=== PATIENT | female | born 1985 | race African-American/Black ===

== ENCOUNTER 2016-08-13 20:54 | Emergency (ER) | payer OTHER ==
[2016-08-13 21:26] VITALS: BP 105/61; PULSE 68; TEMP 98.2; BMI 30.3
--- NOTE | 2016-08-13 22:08 | PDOC ---
History of Present Illness - General History Source: Patient Exam Limitations: No Limitations - History of Present Illness Initial Comments: 08/13/16 22:30 The patient is a 30-year-old female, with a significant past medical history of anxiety and depression, who presents to the ED from urgent care center for evaluation of iron, vitamin B12, and blood counts. Patient has a hx of low iron and B12 levels, resulting in severe fatigue for several weeks. Pt reports she is on Flagyl for an infection that she is unsure of. Doctor from the urgent care sent the pt here for further evaluation. The patient denies any fever, chills, nausea, vomiting, diarrhea, or abdominal pain. <Saba Espinal - Last Filed: 08/13/16 22:30> - General History Source: Patient <Zach Hodges - Last Filed: 08/14/16 00:43> - General Chief Complaint: Blood Transfusion Stated Complaint: REFERRED BY PROVIDER Time Seen by Provider: 08/13/16 22:06 Past History <Saba Espinal - Last Filed: 08/13/16 22:30> - Past Medical History Psychiatric Problems: Yes (Depression, anxiety) - Surgical History Abdominal Surgery: Yes (Gastric sleeve ) - Psycho/Social/Smoking Cessation Hx Anxiety: Yes Suicidal Ideation: No Smoking History: Never smoked Information on smoking cessation initiated: No Hx Alcohol Use: No Drug/Substance Use Hx: No Substance Use Type: None <Zach Hodges - Last Filed: 08/14/16 00:43> - Past Medical History Allergies/Adverse Reactions: Allergies Allergy/AdvReac Type Severity Reaction Status Date / Time No Known Allergies Allergy Verified 08/13/16 21:12 Home Medications: Ambulatory Orders NK [No Known Home Medication] 08/14/16 Review of Systems - Review of Systems Able to Perform ROS?: Yes Comments:: 08/13/16 22:30 CONSTITUTIONAL: Present: fatigue Absent: fever, no chills EYES: Absent: visual changes ENT: Absent: ear pain, no sore throat CARDIOVASCULAR: Absent: chest pain, no palpitations RESPIRATORY: Absent: cough, no SOB GI: Absent: abdominal pain, no nausea, no vomiting, no constipation, no diarrhea GENITOURINARY: Absent: dysuria, no frequency, no hematuria MUSKULOSKELETAL: Absent: back pain, no arthralgia, no myalgia SKIN: Absent: rash NEURO: Absent: headache <Saba Espinal - Last Filed: 08/13/16 22:30> *Physical Exam - Vital Signs Last Vital Signs Temp Pulse Resp BP Pulse Ox 98.2 F 68 18 105/61 100 08/13/16 21:12 08/13/16 21:12 08/13/16 21:12 08/13/16 21:12 08/13/16 21:12 - Physical Exam Comments: 08/13/16 22:31 GENERAL: Well-appearing, well-nourished. No apparent distress. HEENT: Normocephalic, atraumatic. PERRL, EOM intact. CARDIOVASCULAR: Normal S1, S2. Regular rate and rhythm. PULMONARY: Clear to auscultation bilaterally. ABDOMEN: Soft, non-distended, non-tender. EXTREMITIES: Normal ROM in all four extremities. No gross deformities. SKIN: Warm, dry. No rash NEUROLOGICAL: No focal neurological deficits. <Saba Espinal - Last Filed: 08/13/16 22:30> - Vital Signs Last Vital Signs Temp Pulse Resp BP Pulse Ox 98.2 F 68 18 105/61 100 08/13/16 21:12 08/13/16 21:12 08/13/16 21:12 08/13/16 21:12 08/13/16 21:12 <Zach Hodges - Last Filed: 08/14/16 00:43> ED Treatment Course - LABORATORY CBC & Chemistry Diagram: 08/13/16 23:00 08/13/16 23:00 <Zach Hodges - Last Filed: 08/14/16 00:43> *DC/Admit/Observation/Transfer - Attestations Scribe Attestion: 08/13/16 22:32 Documentation prepared by Saba Espinal, acting as biomedical equipment technician for Zach Hodges MD. <Saba Espinal - Last Filed: 08/13/16 22:30> - Discharge Dispostion Admit: No <Zach Hodges - Last Filed: 08/14/16 00:43> Diagnosis at time of Disposition: Lethargy - Discharge Dispostion Disposition: HOME Condition at time of disposition: Stable - Referrals Referrals: Esvin Garrett [Primary Care Provider] - - Patient Instructions Printed Discharge Instructions: DI for Fatigue Additional Instructions: Please follow up with your doctor in the next several days. Call me at the ER for the rest of your results
[2016-08-13 23:07] LABS: BASOPHIL 0.7 % (0-2.0); EOSINOPHIL 2.1 % (0-4.5); MCH 30.1 pg (25.7-33.7); MCHC 33.3 g/dl (32.0-36.0); MEAN CELL VOLUME 90.4 fl (80-96); MEAN PLT VOLUME 8.5 fl (7.5-11.1); NEUTROPHILS 39.3 % (42.8-82.8); PLATELET COUNT 261 K/MM3 (134-434); WHITE BLOOD COUNT 5.1 K/mm3 (4.0-10.0)
[2016-08-13 23:27] LABS: INR 1.12 (0.82-1.09); PROTHROMBIN TIME (PATIENT) 12.3 SEC (9.98-11.88)
[2016-08-13 23:37] LABS: ALBUMIN 3.1 g/dl (3.4-5.0); ALK PHOS 56 U/L (45-117); ANION GAP 8 (8-16); BILIRUBIN,TOTAL 0.2 mg/dL (0.2-1.0); CALCIUM 8.2 mg/dL (8.5-10.1); CO2 24 mmol/L (21-32); CREATININE 0.7 mg/dL (0.55-1.02); GLUCOSE,RANDOM 75 mg/dL (74-106); MAGNESIUM 2.1 mg/dL (1.8-2.4); SGOT/AST 8 U/L (15-37); SGPT/ALT 16 U/L (12-78); TOT PROT 6.6 g/dl (6.4-8.2)
[2016-08-14 03:07] LABS: FERRITIN 26.644 ng/ml (6.9-282.5)
[2016-08-15 06:07] LABS: SERUM IRON 35 ug/dL (27-159); TOTAL IRON BINDING CAPACITY 241 ug/dL (250-450); UIBC 206 ug/dL (131-425)
== END 2016-08-14 00:56 | disposition home or self-care (01) ==
LOC: JER 20:54
DX: R53.83 Other fatigue (principal); F41.8 Other specified anxiety disorders; Z98.84 Bariatric surgery status
CPT/HCPCS: 36415; 80053; 82607; 82728; 83540; 83550; 83735; 84703; 85025; 85610; 99282-25

== ENCOUNTER 2017-01-23 15:54 | Emergency (ER) | payer SELFPAY ==
[2017-01-23 15:58] VITALS: BP 118/84; PULSE 78; TEMP 98; BMI 25.2
--- NOTE | 2017-01-23 16:32 | PDOC ---
History of Present Illness - General Chief Complaint: Rash Stated Complaint: RASH Time Seen by Provider: 01/23/17 16:03 History Source: Patient - History of Present Illness Initial Comments: Chief complaint: Rash Patient is a healthy 31-year-old female who started having an itchy rash 5 days ago was able to control it without taking medicine and now it spread all over her body. No fever. Patient feels a little tickle in her throat but has no respiratory issues, able to breathe, speaking normally. Patient never had a reaction before. pt denies any new products or medications. GENERAL/CONSTITUTIONAL: No fever, weakness. dizziness HEAD, EYES, EARS, NOSE AND THROAT: No change in vision. No ear pain or discharge. No sore throat. CARDIOVASCULAR: No chest pain RESPIRATORY: No shortness of breath or cough GASTROINTESTINAL: No pain, nausea, vomiting, diarrhea or constipation GENITOURINARY: No dysuria MUSCULOSKELETAL: No neck or back pain SKIN: No rash NEUROLOGIC: No headache, vertigo, loss of consciousness, or loss of sensation. GENERAL: The patient is awake, alert, and fully oriented, in no acute distress. HEAD: Normal with no signs of trauma. EYES: Pupils equal, round and reactive to light, sclera anicteric, conjunctiva clear. ENT: pharynx: no erythema, no exudate, uvula midline NECK: supple CHEST: clear, nontender, rr ABD: soft, nontender EXTREMITIES: Normal range of motion, no edema. NEUROLOGICAL: Normal speech, normal gait. SKIN: Warm, Dry, mild widespread pruritic papular rash scattered, no vesicles, no purpura, no petechiae, is blanchable 01/23/17 17:29 Past History - Past Medical History Allergies/Adverse Reactions: Allergies Allergy/AdvReac Type Severity Reaction Status Date / Time No Known Allergies Allergy Verified 01/23/17 15:58 Home Medications: Ambulatory Orders Prednisone [Deltasone -] 40 mg PO DAILY #8 tablet 01/23/17 COPD: No Psychiatric Problems: Yes (Depression, anxiety) - Surgical History Abdominal Surgery: Yes (Gastric sleeve ) - Suicide/Smoking/Psychosocial Hx Smoking History: Never smoked Hx Alcohol Use: Yes (SOCIAL) Drug/Substance Use Hx: No Substance Use Type: None *Physical Exam - Vital Signs Last Vital Signs Temp Pulse Resp BP Pulse Ox 98.0 F 78 20 118/84 100 01/23/17 15:55 01/23/17 15:55 01/23/17 15:55 01/23/17 15:55 01/23/17 15:55 Medical Decision Making - Medical Decision Making Healthy 31-year-old female with ALLERGIC rash, no respiratory distress, getting worse after 5 days, will put on Benadryl, prednisone and Pepcid and she will follow-up on Wednesday. 01/23/17 17:32 *DC/Admit/Observation/Transfer Diagnosis at time of Disposition: Allergic reaction Qualifiers: Encounter type: initial encounter Qualified Code(s): T78.40XA - Allergy, unspecified, initial encounter - Discharge Dispostion Disposition: HOME Condition at time of disposition: Stable Admit: No - Prescriptions Prescriptions: Prednisone [Deltasone -] 40 mg PO DAILY #8 tablet - Referrals Referrals: STAFF,NOT ON [Primary Care Provider] - - Patient Instructions Printed Discharge Instructions: DI for General Allergic Reactions Additional Instructions: take benadryl 25-50 mg every 4 hours for itching take prednisone 40 mg once daily for anther 4 days, start tomorrow take pepcid 20 mg once daily which will help with the reaction and protect your stomach for any upset from the prednisone return to the er if short of breath, difficulty breathing, or getting worse. otherwise follow up with your doctor in 2-3 days - Post Discharge Activity Forms/Work/School Notes: Back to Work
[2017-01-23] MEDS ORDERED: predniSONE 20 MG TABLET (UD) PO ONE (16:33)
[2017-01-23] MEDS ORDERED: diphenhydrAMINE HCL 25 MG CAPSULE (FP) PO ONE ×2 (16:33→16:36)
[2017-01-23] MEDS ORDERED: predniSONE 20 MG TABLET (UD) ONE (16:36)
== END 2017-01-23 16:56 | disposition home or self-care (01) ==
LOC: JERFT 15:54
DX: T78.40XA Allergy, unspecified, initial encounter (principal)
CPT/HCPCS: 99281-25

== ENCOUNTER 2017-04-15 17:34 | Emergency (ER) | payer OTHER ==
[2017-04-15 17:53] VITALS: BP 108/77; PULSE 105; TEMP 99.4; BMI 24.5
--- NOTE | 2017-04-15 17:57 | PDOC ---
Rapid Medical Evaluation Time Seen by Provider: 04/15/17 17:52 Medical Evaluation: Allergies Allergy/AdvReac Type Severity Reaction Status Date / Time No Known Allergies Allergy Verified 04/15/17 17:50 04/15/17 17:52 The patient presents with a chief complaint of: Lower abdominal/pelvic pain for two weeks. 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 Taking 600mg motrin scheduled with little relief. Last dose of Motrin at 3pm I have performed a brief in-person evaluation of this patient; Pertinent physical exam findings: ambulatory, in no respiratory distress, Suprapubic pain/l lower pelvic pain on palpation I have ordered the following: CBC, CMP, UA, UC, Transvaginal US, tylenol The patient will proceed to the ED for further evaluation.
[2017-04-15 18:35] LABS: BASO % 0.4 % (0-2.0); HEMATOCRIT 36.8 % (32.4-45.2); HEMOGLOBIN 12.1 GM/dL (10.7-15.3); LYMPH % 14.9 % (8-40); MCH 29.6 pg (25.7-33.7); MCHC 32.9 g/dl (32.0-36.0); MEAN PLT VOLUME 8.2 fl (7.5-11.1); MONO % 7.5 % (3.8-10.2); NEUT % 76.2 % (42.8-82.8); PLATELET COUNT 282 K/MM3 (134-434); RDW 14.6 % (11.6-15.6); WHITE BLOOD COUNT 6.6 K/mm3 (4.0-10.0)
[2017-04-15 18:37] LABS: URINE APPEARANCE CLEAR; URINE BILIRUBIN NEGATIVE (NEGATIVE); URINE BLOOD NEGATIVE (NEGATIVE); URINE COLOR LTYELLOW; URINE GLUCOSE (UA) NEGATIVE (NEGATIVE); URINE KETONE NEGATIVE (NEGATIVE); URINE LEUK ESTERASE TRACE (NEGATIVE); URINE NITRITE NEGATIVE (NEGATIVE); URINE PROTEIN NEGATIVE (NEGATIVE); URINE UROBILINOGEN NEGATIVE mg/dL (0.2-1.0)
[2017-04-15 19:04] LABS: ALBUMIN 3.1 g/dl (3.4-5.0); ANION GAP 6 (8-16); BILIRUBIN,TOTAL 0.5 mg/dL (0.2-1.0); BLOOD UREA NITROGEN 17 mg/dL (7-18); CALCIUM 7.8 mg/dL (8.5-10.1); CHLORIDE 106 mmol/L (98-107); CO2 25 mmol/L (21-32); CREATININE 0.7 mg/dL (0.55-1.02); GLUCOSE,RANDOM 73 mg/dL (74-106); SGOT/AST 9 U/L (15-37); SGPT/ALT 13 U/L (12-78); SODIUM 137 mmol/L (136-145); TOT PROT 7.8 g/dl (6.4-8.2)
[2017-04-15 19:06] LABS: ALK PHOS 65 U/L (45-117)
[2017-04-15 19:14] LABS: HCG,QUALITATIVE URINE NEGATIVE
[2017-04-15 19:19] LABS: EPI CELLS RARE /HPF (FEW); URINE BACTERIA RARE /hpf (NONE SEEN); URINE HYALINE CAST 1 /lpf; URINE MUCUS RARE
--- NOTE | 2017-04-15 19:29 | PDOC ---
History of Present Illness - General Chief Complaint: Pain, Acute Stated Complaint: ABDOMINAL PAIN Time Seen by Provider: 04/15/17 17:52 - History of Present Illness Initial Comments: 04/15/17 19:55 The patient is a 31 year old female with no significant PMH who presents for evaluation of lower abdominal cramping. 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 She reports continued pain despite use of motrin prompting her presentation to the ED today. She describes her pain as crampy lower abdominal pain with some radiation into her back. She denies fevers, chills, SOB, chest pain, nausea, vomiting, vaginal bleeding, vaginal discharge, or changes with urination or bowel movements. Past History - Past Medical History Allergies/Adverse Reactions: Allergies Allergy/AdvReac Type Severity Reaction Status Date / Time No Known Allergies Allergy Verified 04/15/17 17:50 Home Medications: Ambulatory Orders predniSONE [Deltasone -] 40 mg PO DAILY #8 tablet 01/23/17 COPD: No Psychiatric Problems: Yes (Depression, anxiety) - Surgical History Abdominal Surgery: Yes (Gastric sleeve ) - Suicide/Smoking/Psychosocial Hx Smoking History: Never smoked Hx Alcohol Use: Yes (SOCIAL) Drug/Substance Use Hx: No Substance Use Type: None Review of Systems - Review of Systems Comments:: 04/15/17 19:57 Constitutional: No fevers, chills, fatigue, malaise HEENT: No Rhinorrhea, nasal congestion, visual changes Cardiovascular: No chest pain, syncope, palpitations, lightheadedness Respiratory: No Cough, SOB, Hemoptysis, Gastrointestinal: Lower abdominal cramping. No Nausea, Vomiting, Constipation, Diarrhea, Melena Genitourinary: No Vaginal discharge, vaginal bleeding, Dysuria, Frequency, Urgency, Hesitancy, Hematuria, Flank pain Musculoskeletal: No Myalgia, arthralgia Skin: No rashes, itching, bruising, pallor Neurologic: No Headache, Dizziness, Numbness, Weakness, or Tingling Psychiatric: No Hallucinations. No SI or HI *Physical Exam - Vital Signs Last Vital Signs Temp Pulse Resp BP Pulse Ox 99.4 F 105 H 19 108/77 100 04/15/17 17:51 04/15/17 17:51 02/22/18 17:51 04/15/17 17:51 04/15/17 17:51 - Physical Exam Comments: 04/15/17 19:58 General Appearance: Nourished. No Apparent Distress HEENT: No Pharyngeal Erythema, Tonsillar Exudate, Tonsillar Erythema Neck: No Cervical Lymphadenopathy Respiratory/Chest: Lungs Clear, Normal Breath Sounds. No Crackles, Rales, Rhonchi, Wheezing Cardiovascular: Regular Rhythm, Regular Rate. No Murmur, Gallops, Rubs Gastrointestinal/Abdominal: Normal Bowel Sounds, Soft. Mild tenderness to palpation in the lower quadrants of the abdomen. No Guarding, Rebound, Musculoskeletal: No CVA Tenderness Extremity: Normal Capillary Refill Integumentary: Normal Color, Dry, Warm Neurologic: Fully Oriented, Alert, Normal Mood/Affect, Normal Response, ED Treatment Course - LABORATORY CBC & Chemistry Diagram: 04/15/17 18:20 04/15/17 18:20 - ADDITIONAL ORDERS Additional order review: Laboratory Results 04/15/17 04/15/17 18:20 18:20 Sodium 137 Potassium 4.0 Chloride 106 Carbon Dioxide 25 Anion Gap 6 L BUN 17 Creatinine 0.7 Creat Clearance w eGFR > 60 Random Glucose 73 L Calcium 7.8 L Total Bilirubin 0.5 D AST 9 L ALT 13 Alkaline Phosphatase 65 Total Protein 7.8 Albumin 3.1 L Urine Color Ltyellow Urine Appearance Clear Urine pH 7.0 Ur Specific [place] 1.023 Urine Protein Negative Urine Glucose (UA) Negative Urine Ketones Negative Urine Blood Negative Urine Nitrite Negative Urine Bilirubin Negative Urine Urobilinogen Negative Ur Leukocyte Esterase Trace Urine WBC (Auto) 1 Urine RBC (Auto) 2 Ur Epithelial Cells Rare Urine Bacteria Rare Hyaline Casts 1 Urine Mucus Rare Urine HCG, Qual Negative 04/15/17 18:20 RBC 4.10 MCV 90.0 MCHC 32.9 RDW 14.6 MPV 8.2 Neutrophils % 76.2 D Lymphocytes % 14.9 D Monocytes % 7.5 Eosinophils % 1.0 Basophils % 0.4 Medical Decision Making - Medical Decision Making 04/15/17 19:59 The patient is a 31 year old female with no significant PMH who presents for evaluation of lower abdominal cramping. Labs performed in triage including cbc , cmp, ua are unremarkable. Transvaginal US demonstrates the patients known ovarian cysts which are the likely cause of her pain. The patient appears clinically well on exam and we will treat with bentyl here in the ED. We are comfortable discharging the patient home at this time with specialist physicians follow up. We discussed the results with the patient as well as the plan and the importance of following up with her specialist physicians and the patient voiced understanding and is agreeable with the plan. *DC/Admit/Observation/Transfer Diagnosis at time of Disposition: Ovarian cyst Qualifiers: Laterality: unspecified laterality Qualified Code(s): N83.209 - Unspecified ovarian cyst, unspecified side - Discharge Dispostion Disposition: HOME Condition at time of disposition: Good - Referrals Referrals: Renan Carvajal MD, MD [Primary Care Provider] - Fabian Guadarrama MD [Staff Physician] - - Patient Instructions Printed Discharge Instructions: DI for Ovarian Cyst Additional Instructions: Please return to the ER if you experience concerning or worsening symptoms including worsening pain, fevers, vomiting, or chest pain. You lab results were normal here in the ER. Your ultrasound demonstrated your known ovarian cysts which is the likely cause of your pain. It is important that you call to schedule a follow up appointment with your specialist physicians physician within 2-3 days to discuss further management of your symptoms. - Post Discharge Activity
[2017-04-15] MEDS ORDERED: DICYCLOMINE HCL 20 MG TABLET PO ONE (19:53)
--- NOTE | 2017-04-15 19:55 | PDOC ---
Attending Attestation - Resident Resident Name: Kong Atkinson - ED Attending Attestation I have performed the following: I have examined & evaluated the patient, The case was reviewed & discussed with the resident, I agree w/resident's findings & plan, Exceptions are as noted - Physicial Exam PE: 04/15/17 19:55 Physical Exam General Appearance: Yes: Appropriately Dressed. No: Apparent Distress, Intoxicated HEENT: positive: EOMI, ALMAZ, Normal ENT Inspection, Normal Voice, TMs Normal, Pharynx Normal. negative: Pale Conjunctivae, Photophobia, Scleral Icterus (R), Scleral Icterus (L) Neck: positive: Trachea midline, Normal Thyroid, Supple. negative: Tender, Rigid, Carotid bruit, Stridor, Lymphadenopathy (R), Lymphadenopathy (L), Thyromegaly Respiratory/Chest: positive: Lungs Clear, Normal Breath Sounds. negative: Chest Tender, Respiratory Distress, Accessory Muscle Use, Labored Respiration, RES, Crackles, Rales, Rhonchi, Stridor, Wheezing, Dullness Cardiovascular: positive: Regular Rhythm, Regular Rate, S1, S2. negative: Edema , JVD, Murmur, Bradycardia, Tachycardia Vascular Pulses: Dorsalis-Pedis (R): 2+, Doralis-Pedis (L): 2+ Gastrointestinal/Abdominal: positive: Normal Bowel Sounds, Flat, Soft. negative : Tender, Organomegaly, Pulsatile Mass, Increased Bowel Sounds, Decreased BS, Distended, Guarding, Rebound, Hernia, Hepatomegaly, Spleenomegaly Lymphatic: negative: Adenopathy, Tenderness Musculoskeletal: positive: Normal Inspection. negative: CVA Tenderness, Decreased Range of Motion Extremity: positive: Normal Capillary Refill, Normal Inspection, Normal Range of Motion, Pelvis Stable. negative: Tender, Pedal Edema, Swelling, Erythema Integumentary: positive: Normal Color, Dry, Warm. 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 negative: EOM Palsy, Facial Droop, Sensory Deficit <Zach Hodges - Last Filed: 04/15/17 19:54> - HPI HPI: 04/15/17 19:59 The patient is a 31 year old female, with a significant past medical history of anxiety/depression, who presents to the emergency department with lower abdominal pain for approximately 2 weeks. The patient describes her pain as a cramping that is non radiating in nature. Patient reports visiting her OBGYN, and being told she has bilateral ovarian cysts and fibroids. Patient reports her pain has been worsening over the past few days. She denies any associated nausea, vomiting, diarrhea, or constipation. She denies any vaginal bleeding, discharge, dysuria, hematuria, frequency, or urgency. She denies any fever or chills. Patient reports taking Motrin for her symptoms with minimal relief. Allergies: NKDA Past Surgical History: Gastric sleeve - Medical Decision Making 04/15/17 19:59 Documentation prepared by Jose Israel, acting as director medical economics for Zach Hodges DO. <Jose Israel - Last Filed: 04/15/17 19:59>
[2017-04-15] MEDS ORDERED: DICYCLOMINE HCL 10 MG CAPSULE ONE (20:15)
== END 2017-04-15 20:18 | disposition home or self-care (01) ==
LOC: JER 17:34
DX: N83.201 Unspecified ovarian cyst, right side (principal); N83.202 Unspecified ovarian cyst, left side
CPT/HCPCS: 36415; 76830-TC; 80053; 81003; 81015; 84703; 85025; 87086; 99282-25